=== PATIENT | female | born 1985 | race Caucasian/White ===

== ENCOUNTER 2022-03-28 19:20 | Outpatient (REF) | payer BC, SELFPAY ==
--- OUTSIDE RECORDS SUMMARY | 2022-03-28 19:22 | XMS_ITS ---
:1985 Author Care Team Providers Name Role Phone Jeromy Rider Primary Care Provider Unavailable Allergies Code Code System Name Reaction Severity Status Onset NKDA ? Medications Name Status Start Date Stop Date ? ? amoxicillin 875 mg-potassium clavulanate 125 mg tablet Active ? Not available TAKE 1 TABLET BY MOUTH TWICE DAILY MORNING AND EVENING WITH LESVIA LS FOR 5 DAYS cephalexin 500 mg capsule Active ? Not av ailable clindamycin HCl 300 mg capsule Active ? N ot available escitalopram 10 mg tablet Active ? Not av ailable START WITH 1/2 TABLET BY MOUTH DAILY FO R A WEEK THEN INCREASE TO 1 TABLET DAILY escitalopram 20 mg tablet Active ? Not av ailable fluocinonide 0.05 % topical solution Active ? Not available APPLY TOPICALLY TO THE SCALP 3 TIMES EVERY WEEK fluticasone propionate 50 mcg/actuation nasal spray,suspension A ctive ? Not available SPRAY IN EACH NOSTRIL TWICE DAILY AT BEDTIME hydroxyzine HCl 25 mg tablet Active ? Not available ibuprofen 800 mg tablet Active ? Not avai lable ipratropium bromide 42 mcg (0.06 %) nasal spray Active ? Not available USE 2 SPRAYS IN EACH NOSTRIL EVERY DAY ketoconazole 2 % shampoo Active ? Not melania ilable lactulose 10 gram/15 mL oral solution Active ? Not available TAKE 30 ML BY MOUTH TWICE DAILY medroxyprogesterone 10 mg tablet Active ? Not available metronidazole 0.75 % (37.5 mg/5 gram) vaginal gel Active ? Not available INSERT 1 APPLICATORFUL VAGINALLY AT BEDTIME FOR 5 DAYS nitrofurantoin monohydrate/macrocrystals 100 mg capsule Active ? Not available TAKE 1 CAPSULE BY MOUTH EVERY 12 HOURS WITH MEALS FOR 5 DAYS polyethylene glycol 3350 17 gram/dose oral powder Active ? Not available prednisone 20 mg tablet Active ? Not avai lable TAKE 2 TABLETS BY MOUTH DAILY WITH FOOD IN THE MORNING FOR FIRST 5 DAYS THEN 1 DAILY FOR 2 DAYS trazodone 50 mg tablet Active ? Not avail able triamcinolone acetonide 0.1 % topical ointment Active ? Not available APPLY TOPICALLY TO THE AFFECTED AREA TWICE DAILY NEEDED Wal-Mucil Fiber 0.52 gram capsule Active ? Not available TAKE 2 CAPSULES BY MOUTH DAILY Problems Name Status Onset Date Source ? Acute Urinary Tract Infection Active 11/28/2021 ? Urinary Symptoms Active 11/28/2021 ? Procedures None recorded. Results Lab Results Date Name Specimen Result Interpretation Description Value Range Status Address ? 02/12/2022 Bacterial ? Specimen negative ? ? [facility], PCR, [place] lt: Vaginal Fluid [address] , [place] 02/12/2022 ? Hcg negative ? ? [facility], [facility] [place]: [address] , [place] 02/12/2022 Urinalysis, Urine ? Leukocytes 500 ? ? [facility] [place]: [address] , [place] ? ? Urine ? Nitrite negative ? ? [facility] [place]: [address] , [place] ? ? Urine ? Urobilinogen 0.2 ? ? [facility] [place]: [address] , [place] ? ? Urine ? Protein NEG ? ? [facility] [place]: [address] , [place] ? ? Urine ? Ph 6.0 ? ? [facility] [place]: [address] , [place] ? ? Urine ? Blood 5-10 ? ? [facility] [place]: [address] , [place] ? ? Urine ? Specific 1.030 ? ? [facility] [place] [facility] [place]: [address] , [place] ? ? Urine ? Ketone NEG ? ? [facility] [place]: [address] , [place] ? ? Urine ? Bilirubin NEG ? ? [facility] [place]: [address] , [place] ? ? Urine ? Glucose NEG ? ? [facility] [place]: [address] , [place] ? ? Urine ? Appearance CLEAR ? ? [facility] [place]: [address] , [place] ? ? Urine ? Color YELLOW/AP ? ? [facility] [place]: [address] , [place] 11/28/2021 Urinalysis, Urine ? Leukocytes 70 ? ? [facility] [place]: [address] , [place] ? ? Urine ? Nitrite negative ? ? [facility] [place]: [address] , [place] ? ? Urine ? Urobilinogen 0.2 ? ? [facility] [place]: [address] , [place] ? ? Urine ? Protein NEG ? ? [facility] [place]: [address] , [place] ? ? Urine ? Ph 6.0 ? ? [facility] [place]: [address] , [place] ? ? Urine ? Blood +++ ? ? [facility] [place]: [address] , [place] ? ? Urine ? Specific 1.030 ? ? [facility] [place] [facility] [place]: [address] , [place] ? ? Urine ? Ketone NEG ? ? [facility] [place]: [address] , [place] ? ? Urine ? Bilirubin NEG ? ? [facility] [place]: [address] , [place] ? ? Urine ? Glucose NEG ? ? [facility] [place]: [address] , [place] ? ? Urine ? Appearance CLOUDY ? ? [facility] [place]: [address] , [place] ? ? Urine ? Color YELLOW/AP ? ? [facility] [place]: [address] , [place] 08/30/2021 Urinalysis, Urine ? Leukocytes 70 ? ? [facility] [place]: [address] , [place] ? ? Urine ? Nitrite negative ? ? [facility] [place]: [address] , [place] ? ? Urine ? Urobilinogen 0.2 ? ? [facility] [place]: [address] , [place] ? ? Urine ? Protein NEG ? ? [facility] [place]: [address] , [place] ? ? Urine ? Ph 6.0 ? ? [facility] [place]: [address] , [place] ? ? Urine ? Blood ++ ? ? [facility] [place]: [address] , [place] ? ? Urine ? Specific 1.025 ? ? [facility] [place] [facility] [place]: [address] , [place] ? ? Urine ? Ketone NEG ? ? [facility] [place]: [address] , [place] ? ? Urine ? Bilirubin NEG ? ? [facility] [place]: [address] , [place] ? ? Urine ? Glucose NEG ? ? [facility] [place]: [address] , [place] ? ? Urine ? Appearance CLEAR ? ? [facility] [place]: [address] , [place] ? ? Urine ? Color YELLOW/AP ? ? 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 11/28/2021 Acute Urinary Tract Infection Jeromy Rider PA: [id number], [place] [address], Ph. 08/30/2021 Increased Frequency of Urination JEZ Kelley: [address], [place] [address], Ph. Social History None recorded. Vaccine List Vaccine Type COVID-19, mRNA, LNP-S, PF, 100 mcg/0.5 m L dose (Moderna) 09/19/2020 10/17/2020 influenza, injectable, quadrivalent, pre servative free 05/24/2019 influenza, seasonal, injectable 05/27/2010 Tdap 08/24/2013 Plan of Care Patient Instructions Take antibiotic until gone. Push fluids for a few days. OTC medications for symptom management. return as needed, If no improvement, see PCP. Prevention of UTIs: Drink plenty of water each day. This hel ps you urinate often, which clears bacteria from your system. (If you have kidney, heart, or liver disease and have to limit fluids, talk with your doctor before you increase the amount of fluids you drink.) Urinate when you need to. If you are sexually active, urinate righ t after you have sex. Change sanitary pads often. Avoid douches, bubble baths, feminine hy giene sprays, and other feminine hygiene products that have deodorants. After going to the bathroom, wipe from f ront to back. Push fluids and rest. Tylenol or Ibuprofen as needed for pain. Cranberry juice or pills as desired. Take Macrobid as prescribed. See care instructions. PCP follow up in 4-5 days if not improvi ng, sooner if problems, to ED if worsening. UTI, no evidence of Pyelo, patient doin g well, will cover with Macrobid, symptomatic cares advised, patient verbally agrees to the following plan. Push fluids and rest. Tylenol orIbuprofen as needed for pain o r fever. Take Macrobid as prescribed. Cranberry pills or juice if desired. OTC Azo if needed for cramping or pain. See care instructions. PCP follow up in 4-5 days if not improvi ng, sooner if problems, to ED if worsening. Reminders Provider Appointments None recorded. ? ? Lab None recorded. ? ? Referral None recorded. ? ? Procedures None recorded. ? ? Surgeries None recorded. ? ? Imaging None recorded. ? ? Vitals 02/12/2022 04:40PM URGENT CARE Blood Pressure 107/71 mm[Hg] 11/28/2021 12:45PM URGENT CARE Blood Pressure 117/80 mm[Hg] 08/30/2021 09:45AM URGENT CARE Blood Pressure 117/83 mm[Hg]
--- OUTSIDE RECORDS SUMMARY | 2022-03-28 19:22 | XMS_ITS | Encounter Summary ---
:1985 Author Reason for Visit UTI symptoms Assessment and Plan Assessment Note UA indicative of possible UTI. Bacteria l Vaginosis swab negative, discussed with patient. Given the fact that she would h ave to wait until Mon or Tue of next week to get urine culture results and she states she gets cramping with UTI's, I will treat with Macrobid BID x 5 days. We will not culture the urine. By the time we get results, she will have completed her 5 d ays. If no improvement, she is to call her PCP. Patient verbalized understanding an d agrees with plan of care today. 1. Acute urinary tract infection ? urinalysis, dipstick ? test, urine ? bacterial vaginosis DNA, PCR, vaginal fluid ? Macrobid 100 mg capsule ? Urinary Tract Infection (UTI) in [place]: Care Instructions Discussion Note: None recorded. Plan of Care Patient Instructions Take antibiotic [...] bathroom, wipe from f ront to back. Reminders Provider Appointments None recorded. ? ? Lab Urinalysis, Dipstick 02/12/2022 [facility] [place] ? Test, Urine 02/12/2022 [facility] [place] ? Bacterial Vaginosis DNA, 02/12/2022 [facility], Vaginal Fluid [place] Referral None recorded. ? ? Procedures None recorded. ? ? Surgeries None recorded. ? ? Imaging None recorded. ? ? Medications Name Start Date ? ? amoxicillin 875 mg-potassium clavulanate 125 mg tablet ? TAKE 1 TABLET BY MOUTH TWICE DAILY MORNING AND EVENIN G WITH MEALS FOR 5 DAYS cephalexin 500 mg capsule ? clindamycin HCl 300 mg capsule ? escitalopram 10 mg tablet ? START WITH 1/2 TABLET BY MOUTH DAILY FO R A WEEK THEN INCREASE TO 1 TABLET DAILY escitalopram 20 mg tablet ? fluocinonide 0.05 % topical solution ? APPLY TOPICALLY TO THE SCALP 3 TIMES EVERY WEEK fluticasone propionate 50 mcg/actuation nasal spray,mayorga spension ? SPRAY IN EACH NOSTRIL TWICE DAILY AT BEDTIME hydroxyzine HCl 25 mg tablet ? ibuprofen 800 mg tablet ? ipratropium bromide 42 mcg (0.06 %) nasal spray ? USE 2 SPRAYS IN EACH NOSTRIL EVERY DAY ketoconazole 2 % shampoo ? APPLY EXTERNALLY TO THE SCALP 3 TIMES EVERY WEEK lactulose 10 gram/15 mL oral solution ? TAKE 30 ML BY MOUTH TWICE DAILY medroxyprogesterone 10 mg tablet ? metronidazole 0.75 % (37.5 mg/5 gram) vaginal gel ? INSERT 1 APPLICATORFUL VAGINALLY AT BEDTIME FOR 5 DAY S nitrofurantoin monohydrate/macrocrystals 100 mg capsul e ? TAKE 1 CAPSULE BY MOUTH EVERY 12 HOURS WITH MEALS FOR 5 DAYS polyethylene glycol 3350 17 gram/dose oral powder ? prednisone 20 mg tablet ? TAKE 2 TABLETS BY MOUTH DAILY WITH FOOD IN THE MORNING FOR FIRST 5 DAYS THEN 1 DAILY FOR 2 DAYS trazodone 50 mg tablet ? triamcinolone acetonide 0.1 % topical ointment ? APPLY TOPICALLY TO THE AFFECTED AREA TWICE DAILY N EEDED Wal-Mucil Fiber 0.52 gram capsule ? TAKE 2 CAPSULES BY MOUTH DAILY Medications Administered None recorded. Vitals Blood Pressure 107/71 mm[Hg] Results Lab Results Date Name Specimen Result Interpretation Description Value Range Status Address ? 02/12/2022 Bacterial ? Specimen negative ? ? [facility], [facility] lt: Vaginal Fluid [address] [facility] [address] , [place] 02/12/2022 ? Hcg negative ? ? [facility], [facility]rine [facility] [place]: [address] [facility] [address] , [place] 02/12/2022 Urinalysis, Urine ? Leukocytes 500 ? ? [facility] [place]: [address] , [place] ? ? Urine ? Nitrite negative ? ? [facility] [place]: [address] , [place] ? ? Urine ? Urobilinogen 0.2 ? ? [facility] [place]: [address] , [place] ? ? Urine ? Protein NEG ? ? [facility] [place]: [address] , [place] ? ? Urine ? Ph 6.0 ? ? [facility] [place]: [address] , [place] ? ? Urine ? Blood 5-10 ? ? [facility] [place]: [address] , [place] ? ? Urine ? Specific 1.030 ? ? [facility] [place] [facility] [place]: [address] , [place] ? ? Urine ? Ketone NEG ? ? [facility] [place]: [address] , [place] ? ? Urine ? Bilirubin NEG ? ? [facility] [place]: [address] , [place] ? ? Urine ? Glucose NEG ? ? [facility] [place]: [address] , [place] ? ? Urine ? Appearance CLEAR ? ? [facility] [place]: [address] , [place] ? ? Urine ? Color YELLOW/AP ? ? [facility] [place]: [address] , [place] Allergies Code Code System Name Reaction Severity Onset NKDA ? ? ? Problems Name Status Onset Date Source ? Acute Urinary Tract Infection Active 11/28/2021 ? Urinary Symptoms Active 11/28/2021 ? Procedures None recorded. Vaccine List Vaccine Type COVID-19, mRNA, LNP-S, PF, 100 mcg/0.5 m L dose (Moderna) 09/19/2020 10/17/2020 influenza, injectable, quadrivalent, pre servative free 05/24/2019 influenza, seasonal, injectable 05/27/2010 Tdap 08/24/2013 Social History None recorded. Functional Status Unknown. 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 History of Present Illness ? Recurrent UTI Reported By: Patient HPI: Severity: mild. Associated S ymptoms: no urgency, no incontinence, no nocturia, no dysuria, no hem aturia, no incomplete emptying, no flank pain, no back pain, no kidne y stones, frequency Note: <div>Patient comes in with a 1 day history of suprapubic tenderness/cramping. She also has urgency and frequency, but feels that she always has that. Denies fever, chills, dysuria, discharge, itching, blood in urine, odorous urine, or cloudy urine. No other UTI symptoms. She does report that her and her have sex a lot. She has a history of bladder infections and this is how they start.She also reports that she has been treated in the last few months for bacterial vaginosis, but with Boric Acid. </div> Review of Systems ? Comprehensive Adult Problem ROS Reported By: Patient Constitutional: Constitutional: no significa nt weight change, good appetite, no fever, happy/content, nor mal activity level, no fatigue Eyes: Eyes: no eye pain, no blurry vision, no eye redness, no eye itchiness, no eye swelling, no eye discharge, normal movement ENMT: ENMT: no ear pain, no ear di scharge, no hearing loss, no sinus pressure, no drooling, no fa cial swelling, no congestion, no sore throat, no hoarseness, no mouth lesions Cardiovascular: Cardiovascular: no chest adrián n, normal heart rate Chest/Breasts: Breasts: no lumps, no tender ness, no discharge Respiratory: Respiratory: no cough, no wh eezing, no chest tightness, no pain with respiration, khloe l respiration Gastrointestinal: GI: no difficulty swallowing , no abdominal pain, no nausea, no vomiting, no diarrhea, no co nstipation, no blood in stools, no mucous in stool Genitourinary: : no discharge, no blood i n urine, no pain with urination, no voiding urgency, no vagin al discharge, increased frequency of urination; cramping Musculoskeletal: Musculoskeletal: no soft tis tashi swelling, no joint swelling, no myalgia, moves all extrem ities well, no previous injuries, no trauma Skin: Skin: no pain, no itchiness, no skin dryness, no flaking, no redness, no rash, no hives, no skin lesions, no skin growths, no skin lumps, no swelling, no bruising, no insect bites Neurological symptoms: Neuro: no numbness, no weakn ess, no tingling, no burning, no shooting pain, no headache, no dizziness, no loss of consciousness Psychiatric: Psych: no depression, no anx iety, no insomnia, no stress, no loss of interest Endocrine: Endocrine: normal drinking, no temperature intolerance Allergic/Immunologic: Allergy/Immunologic: no snee zing, no runny nose Physical Exam ? Abdominal Pain Exam Reported By: Patient Constitutional: General Appearance: no acute distress, no nausea, no vomiting, healthy-appearing, no jaundi ce, alert and oriented Abdomen: Visual Inspection non-disten ded, symmetrical. Percussion ; no CVA tenderness
[2022-03-28 21:34] LABS: SARS PCR* Negative SARS-CoV-2 (Negative)
== END 2022-03-28 19:21 | disposition home or self-care (01) ==
LOC: NPINS 19:20
PROVIDERS: Visit Provider Internal Medicine
DX: R40.0 Somnolence (principal); R53.83 Other fatigue
CPT/HCPCS: 87635

== ENCOUNTER 2022-03-31 20:17 | Outpatient (CLI) | payer BC, SELFPAY ==
--- OUTSIDE RECORDS SUMMARY | 2022-03-31 20:21 | XMS_ITS | Encounter Summary ---
[...] Lab Urinalysis, Dipstick 02/12/2022 [facility] [place] ? Test, Urine 02/12/2022 [facility] [place] ? Bacterial Vaginosis DNA, 02/12/2022 [facility], Vaginal Fluid [place] Referral None recorded. ? ? Procedures None [...] ? [facility], PCR, [facility] lt: Vaginal Fluid [address] [facility] [address] , [place] 02/12/2022 ? Hcg negative ? ? [facility], [facility]rine [facility] [place]: [address] [facility] [address] , [place] 02/12/2022 Urinalysis, Urine ? Leukocytes 500 ? ? [facility] [place]: [address] , [place] ? ? Urine ? Nitrite negative ? ? [facility] [place]: [address] , [place] ? ? Urine ? Urobilinogen 0.2 ? ? [facility] [place]: [address] , [place] ? ? Urine ? Protein NEG ? ? [facility] [place]: [address] , [place] ? ? Urine ? Ph 6.0 ? ? [facility] [place]: [address] , [place] ? ? Urine ? Blood 5-10 ? ? [facility] [place]: [address] , [place] ? ? Urine ? Specific 1.030 ? ? [facility] [place] [facility] [place]: [address] , [place] ? ? Urine ? Ketone NEG ? ? [facility] [place]: [address] , [place] ? ? Urine ? Bilirubin NEG ? ? [facility] [place]: [address] , [place] ? ? Urine ? Glucose NEG ? ? [facility] [place]: [address] , [place] ? ? Urine ? Appearance CLEAR ? ? [facility] [place]: [address] , [place] ? ? Urine ? Color YELLOW/AP ? ? 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 History of Present Illness ? Recurrent [...]
--- OUTSIDE RECORDS SUMMARY | 2022-03-31 20:21 | XMS_ITS ---
[...] Fluid [address] , [place] 02/12/2022 ? Hcg negative ? ? [facility], [facility] [place]: [address] , [place] 02/12/2022 Urinalysis, Urine ? Leukocytes 500 ? ? [facility] [place]: [address] , [place] ? ? Urine ? Nitrite negative ? ? [facility] [place]: [address] , [place] ? ? Urine ? Urobilinogen 0.2 ? ? [facility] [place]: [address] , [place] ? ? Urine ? Protein NEG ? ? [facility] [place]: [address] , [place] ? ? Urine ? Ph 6.0 ? ? [facility] [place]: [address] , [place] ? ? Urine ? Blood 5-10 ? ? [facility] [place]: [address] , [place] ? ? Urine ? Specific 1.030 ? ? [facility] [place] [facility] [place]: [address] , [place] ? ? Urine ? Ketone NEG ? ? [facility] [place]: [address] , [place] ? ? Urine ? Bilirubin NEG ? ? [facility] [place]: [address] , [place] ? ? Urine ? Glucose NEG ? ? [facility] [place]: [address] , [place] ? ? Urine ? Appearance CLEAR ? ? [facility] [place]: [address] , [place] ? ? Urine ? Color YELLOW/AP ? ? [facility] [place]: [address] , [place] 11/28/2021 Urinalysis, Urine ? Leukocytes 70 ? ? [facility] [place]: [address] , [place] ? ? Urine ? Nitrite negative ? ? [facility] [place]: [address] , [place] ? ? Urine ? Urobilinogen 0.2 ? ? [facility] [place]: [address] , [place] ? ? Urine ? Protein NEG ? ? [facility] [place]: [address] , [place] ? ? Urine ? Ph 6.0 ? ? [facility] [place]: [address] , [place] ? ? Urine ? Blood +++ ? ? [facility] [place]: [address] , [place] ? ? Urine ? Specific 1.030 ? ? [facility] [place] [facility] [place]: [address] , [place] ? ? Urine ? Ketone NEG ? ? [facility] [place]: [address] , [place] ? ? Urine ? Bilirubin NEG ? ? [facility] [place]: [address] , [place] ? ? Urine ? Glucose NEG ? ? [facility] [place]: [address] , [place] ? ? Urine ? Appearance CLOUDY ? ? [facility] [place]: [address] , [place] ? ? Urine ? Color YELLOW/AP ? ? [facility] [place]: [address] , [place] 08/30/2021 Urinalysis, Urine ? Leukocytes 70 ? ? [facility] [place]: [address] , [place] ? ? Urine ? Nitrite negative ? ? [facility] [place]: [address] , [place] ? ? Urine ? Urobilinogen 0.2 ? ? [facility] [place]: [address] , [place] ? ? Urine ? Protein NEG ? ? [facility] [place]: [address] , [place] ? ? Urine ? Ph 6.0 ? ? [facility] [place]: [address] , [place] ? ? Urine ? Blood ++ ? ? [facility] [place]: [address] , [place] ? ? Urine ? Specific 1.025 ? ? [facility] [place] [facility] [place]: [address] , [place] ? ? Urine ? Ketone NEG ? ? [facility] [place]: [address] , [place] ? ? Urine ? Bilirubin NEG ? ? [facility] [place]: [address] , [place] ? ? Urine ? Glucose NEG ? ? [facility] [place]: [address] , [place] ? ? Urine ? Appearance CLEAR ? ? [facility] [place]: [address] , [place] ? ? Urine ? Color YELLOW/AP ? ? 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 11/28/2021 Acute Urinary Tract Infection Jeromy Rider PA: [id number], [place] [address], Ph. 08/30/2021 Increased Frequency of Urination JEZ Kelley: [address], [place] [address], Ph. Social History None recorded. Vaccine List [...]
== END 2022-03-31 20:18 | disposition home or self-care (01) ==
LOC: SLEEP 20:19
PROVIDERS: Visit Provider Nurse Practitioner
DX: G47.33 Obstructive sleep apnea (adult) (pediatric) (principal)
CPT/HCPCS: 95810